=== PATIENT | female | born 1960 | race Caucasian/White ===

== ENCOUNTER → 2017-09-25 | Outpatient (CLI) | payer OTHER ==
[~2017-09-25] MED LIST: ADVAIR 250-501 EACH INH; APPEAREX2500 MCG PO; BIOTIN2500 MCG PO; MIRAPEX0.5 MG PO; OMEPRAZOLE40 MG PO; PEPCID40 MG PO; PERCOCET 5-3251 EACH PO; PEXEVA40 MG PO; PROVENT SR1 EACH; PROVENTIL HFA6.7 G1 INH; THEO-24300 MG PO; VICODIN ES TAB1 EACH; VITAMIN B-12500 MCG; VITAMIN D3; VITAMIN D35000 UNI1 PO
== END ==
LOC: M.RAD 15:36
DX: Z12.31 Encounter for screening mammogram for malignant neoplasm of breast (principal); M85.89 Other specified disorders of bone density and structure, multiple sites; Z78.0 Asymptomatic menopausal state

== ENCOUNTER → 2018-02-27 | Outpatient (CLI) | payer OTHER | LOC: M.RAD 12:13 | DX: M19.042 Primary osteoarthritis, left hand (principal); M79.645 Pain in left finger(s); M25.532 Pain in left wrist ==

== ENCOUNTER → 2018-03-13 | Outpatient (CLI) | payer OTHER | LOC: M.MRI 12:51 | DX: M18.12 Unilateral primary osteoarthritis of first carpometacarpal joint, left hand (principal); M79.642 Pain in left hand ==

== ENCOUNTER → 2019-05-22 | Outpatient (CLI) | payer OTHER ==
--- NOTE | 2019-05-22 12:39 | 2DMMODE ---
[place] [address] 2 D/M-MODE ECHOCARDIOGRAM Name: MARJANADRY Room: [facility]#: [id number] Admission: 05/22/19 Attend Phys: Christy LOERA Herrera Discharge: Date of : 56 Date of Service: 05/22/19 1238 Report #: [id number] THIS REPORT FOR: //name// APPROVED REPORT Study performed: 05/22/2019 11:04:32 EXAM: Comprehensive 2D, Doppler, and color-flow Echocardiogram Patient Location: Out-Patient BSA: 1.58 HR: 96 bpm BP: 88/58 mmHg Other Information Study Quality: Adequate Indications Dyspnea 2D Dimensions IVSd: 9.19 (7-11mm) LVOT Diam: 19.59 (18-24mm) LVDd: 35.01 mm PWd: 8.33 (7-11mm) Ascending Ao: 22.94 (22-36mm) LVDs: 20.20 (25-40mm) Aortic Root: 18.25 mm Volumes Left Atrial Volume (Systole) LA ESV Index: 8.30 mL/m2 Aortic Valve AoV Peak Mio.: 1.45 m/s AO Peak Gr.: 8.46 mmHg LVOT Max P.77 mmHg AO Mean Gr.: 4.85 mmHg LVOT Mean P.06 mmHg LVOT Max V: 1.39 m/s AO V2 VTI: 26.67 cm LVOT Mean V: 1.09 m/s ADAN (VTI): 2.96 cm2 LVOT V1 VTI: 26.20 cm Mitral Valve E/A Ratio: 0.85 MV Decel. Time: 335.65 ms MV E Max Mio.: 0.67 m/s MV PHT: 97.34 ms MVA (PHT): 2.26 [place]2 [place] [address] 2 D/M-MODE ECHOCARDIOGRAM Name: ADRY PHILLIP Room: [facility]#: [id number] Admission: 05/22/19 Attend Phys: Christy LOERA Herrera Discharge: Date of : 56 Date of Service: 05/22/19 1238 Report #: [id number] TDI E/Lateral E': 5.15 E/Medial E': 6.70 Medial E' Mio.: 0.10 m/s Lateral E' Mio.: 0.13 m/s Pulmonary Valve PV Peak Mio.: 1.08 m/s PV Peak Gr.: 4.65 mmHg Tricuspid Valve RAP Estimate: 5.00 mmHg TR Peak Gr.: 19.58 mmHg RVSP: 24.58 mmHg PA Pressure: 24.58 mmHg Left Ventricle The left ventricle is normal size. There is normal LV segmental wall motion. There is normal left ventricular wall thickness. Left ventricular systolic function is normal. The left ventricular ejection fraction is within the normal range. LVEF is 60-65%. Grade I - abnormal relaxation pattern. Right Ventricle The right ventricle is normal size. The right ventricular systolic function is normal. Atria The left atrium size is normal. The right atrium size is normal. Aortic Valve The aortic valve is not well visualized. No aortic regurgitation is present. There is no aortic valvular stenosis. Mitral Valve The mitral valve is normal in structure. Trace mitral valve regurgitation noted. No evidence of mitral valve stenosis. Tricuspid Valve The tricuspid valve is normal in structure. Mild tricuspid regurgitation. Pulmonic Valve Pulmonic valve is not well visualized. There is no pulmonic valvular regurgitation[place] [address] 2 D/M-MODE ECHOCARDIOGRAM Name: MARJANADRY MURIEL Room: [facility]#: [id number] Admission: 05/22/19 Attend Phys: Christy LOERA Herrera Discharge: Date of : 56 Date of Service: 05/22/19 1238 Report #: [id number] The aortic root is normal in size. IVC is normal in size and collapses >50% with inspiration. Pericardium There is no pericardial effusion. <Conclusion> LVEF is 60-65%. Trace mitral valve regurgitation noted. Mild tricuspid regurgitation. <ELECTRONICALLY SIGNED> By: Candelario Livingston MD, [facility] 05/22/19 1238 1238 1238 Candelario Livingston MD, [facility] /INF
== END ==
LOC: M.RAD 09:58
DX: Z12.31 Encounter for screening mammogram for malignant neoplasm of breast (principal); I36.1 Nonrheumatic tricuspid (valve) insufficiency; J45.20 Mild intermittent asthma, uncomplicated; E78.2 Mixed hyperlipidemia